=== PATIENT | female | born 1975 | race Caucasian/White ===

== ENCOUNTER 2017-03-12 17:54 | Emergency (ER) | payer BC ==
[~2017-03-12] VITALS: Ht 175.3 cm; Wt 71.5 kg
[2017-03-12 17:59] VITALS: Ht 175.3 cm; Wt 71.5 kg
--- NOTE | 2017-03-12 20:07 | RADRPT ---
PROCEDURE: CT Brain without. CLINICAL INDICATION: Head injury TECHNIQUE: A CT of the brain was performed utilizing axial sections from the skull base through th e vertex without contrast. The scan was reviewed in soft tissue brain and high frequency resolution bone algorithm windows. Images were reviewed on a high-resolution PACS workstation. images. The c alculated radiation dose measures 720.23 mGy centimeters. The CTDI measures 45.0 mGy. One or more of the following dose reduction techniques were used: - Automated exposure control. - Adjustment of the mA and/or kV according to patient size . - Use of iterative reconstruction technique. Images were reviewed on a high-resolution PACS workstation COMPARISON: None available FINDINGS: The ventricles and sulci are symmetric and normal in size and morphology. There is no evidence of i ntracranial hemorrhage, mass effect, edema or midline shift. No abnormal intra-axial or extra-axial fluid collections are seen. The density of the brain is normal and the yee/white matter different iation is well preserved. Brainstem and posterior fossa structures are equally unremarkable. The o sseous structures and visualized paranasal sinuses are unremarkable. The surrounding soft tissue sc alp and bony calvarium are intact and normal. IMPRESSION: 1. No acute intracranial findings. RPTAT: UU .Royal Suarez MD, Date Time Electronically viewed and signed by .Royal Suarez MD, MD on 03/12/2017 20:06 .d/
[2017-03-12] MEDS ORDERED: ACET500C5 PO (20:33)
[2017-03-12 20:43] VITALS: BP 126/82; PULSE 81; RESP 20; TEMP 98.1
--- NOTE | 2017-03-12 20:44 | ERD ---
ER Documentation Chief Complaint Date/Time DATE: 03/12/17 TIME: 20:41 Chief Complaint Complains of cofrontal headache after bumping heads with HPI 41-year-old female patient with no significant past medical history presents to the ED complaining of a headache that started 3 days ago. Reports that she sustained a head injury as her hit her face with his posterior head. Describes the pain as achy and rates it a 5 out of 10. States that she followed up with her primary care physician, Dr. Brandon Ragland sent here for a CT of the brain without contrast due to having a more dilated left pupil. Denies any nausea, vomiting, neck stiffness, fever, chills, blurred vision, vision loss, eye pain, weakness, dizziness. ROS All systems reviewed and are negative except as per history of present illness. Medications Home Meds Active Scripts Acetaminophen* (Tylophen*) 500 Mg Capsule, 1 CAP PO Q6H Y for PAIN AND OR ELEVATED TEMP, #20 CAP Prov:JONATHON MALIN PA-C 03/12/17 Allergies Allergies: Coded Allergies: minocycline (Verified Allergy, Unknown, 03/12/17) PMhx/Soc History of Surgery: Yes (Cardiac Ablation,L Knee Surg,IUD) Anesthesia Reaction: No Hx Neurological Disorder: No Hx Respiratory Disorders: No Hx Cardiac Disorders: No Hx Psychiatric Problems: No Hx Miscellaneous Medical Probl: No Hx Alcohol Use: Yes (Social) Hx Substance Use: No Hx Tobacco Use: No Physical Exam Vitals Vital Signs Date Time Temp Pulse Resp B/P Pulse Ox O2 Delivery O2 Flow Rate FiO2 03/12/17 17:59 98.4 116 20 146/91 95 Physical Exam Const: [id number], well-nourished. In no acute distress. Head: Atraumatic, normocephalic Eyes: Normal Conjunctiva without injection. No purulent discharge. PERRLA. EOMI ENT: Normal external ear. Ear canal without erythema. Tympanic membrane pearly yee without effusion or bulging. Nasal canal clear with normal turbinates. Moist oropharynx without tonsillar exudates. Non-erythematous pharynx. Uvula midline. No drooling. No trismus. Neck: No cervical midline tenderness. Full range of motion. No meningismus. No cervical lymphadenopathy. No JVD. Resp: Clear to auscultation bilaterally. No wheezing, rhonchi, rales, or crackles. No accessory muscle use. No retractions. Cardio: Regular rate and rhythm. No murmurs, rubs or gallops. Abd: Soft, non tender, non distended. Normal bowel sounds. No palpable masses. No rebound tenderness. No guarding. Negative McBurney's Point. Negative Delgado's Sign. Skin: Normal skin turgor. No petechiae or rashes Back: No midline tenderness. No CVA tenderness. Ext: No cyanosis, or edema. Distal pulses intact bilaterally. Neur: Awake and alert. Normal gait. Normal coordination. Cranial Nerves II- VII intact. Normal finger to nose. Muscle strength 5/5. Sensation intact. Psych: Normal Mood and Affect Procedures/MDM 41-year-old female patient with no significant past medical history presents to the ED complaining of a headache that started 3 days ago after a head injury. Patient is afebrile and nontoxic-appearing. Patient has normal vital signs. PERRLA. EOMI. No conjunctival injection. PROCEDURE: CT Brain without. CLINICAL INDICATION: Head injury TECHNIQUE: A CT of the brain was performed utilizing axial sections from the skull base through the vertex without contrast. The scan was reviewed in soft tissue brain and high frequency resolution bone algorithm windows. Images were reviewed on a high-resolution PACS workstation. images. The calculated radiation dose measures 720.23 mGy centimeters. The CTDI measures 45.0 mGy. One or more of the following dose reduction techniques were used: - Automated exposure control. - Adjustment of the mA and/or kV according to patient size . - Use of iterative reconstruction technique. Images were reviewed on a high-resolution PACS workstation COMPARISON: None available FINDINGS: The ventricles and sulci are symmetric and normal in size and morphology. There is no evidence of intracranial hemorrhage, mass effect, edema or midline shift. No abnormal intra-axial or extra-axial fluid collections are seen. The density of the brain is normal and the yee/white matter differentiation is well preserved. Brainstem and posterior fossa structures are equally unremarkable. The osseous structures and visualized paranasal sinuses are unremarkable. The surrounding soft tissue scalp and bony calvarium are intact and normal. IMPRESSION: 1. No acute intracranial findings. Low suspicion for intracranial bleed, subarachnoid hemorrhage, meningitis, TIA, stroke, glaucoma, subdural hematoma, epidural hematoma, malignancy, cavernous sinus thrombosis or other emergent conditions. Discharge medications: Tylenol Follow up with primary care physician in 1-2 days. Instructed patient to return to the ED sooner for any worsening symptoms. Patient's questions were answered. Patient understood and agreed with discharge plan. Patient discharged stable. Departure Diagnosis: Primary Impression: Head injury Encounter type: initial encounter Qualified Code: S09.90XA - Injury of head , initial encounter Condition: Stable Patient Instructions: HEAD INJURY, No Wake-Up (Adult) Referrals: [facility] YOU HAVE RECEIVED A MEDICAL SCREENING EXAM AND THE RESULTS INDICATE THAT YOU DO NOT HAVE A CONDITION THAT REQUIRES URGENT TREATMENT IN THE EMERGENCY DEPARTMENT. FURTHER EVALUATION AND TREATMENT OF YOUR CONDITION CAN WAIT UNTIL YOU ARE SEEN IN YOUR DOCTORS OFFICE WITHIN THE NEXT 1-2 DAYS. IT IS YOUR RESPONSIBILITY TO MAKE AN APPOINTMENT FOR FOLOW-UP CARE. IF YOU HAVE A PRIMARY DOCTOR --you should call your primary doctor and schedule an appointment IF YOU DO NOT HAVE A PRIMARY DOCTOR YOU CAN CALL OUR PHYSICIAN REFERRAL HOTLINE AT IF YOU CAN NOT AFFORD TO SEE A PHYSICIAN YOU CAN CHOSE FROM THE FOLLOWING [facility] [address] [facility]. [facility] [address] [facility]. [facility] [address] [facility] [facility] [address] [facility] [facility] [address] [facility]. [facility]. [address] [facility]. [facility] YOU HAVE RECEIVED A MEDICAL SCREENING EXAM AND THE RESULTS INDICATE THAT YOU DO NOT HAVE A CONDITION THAT REQUIRES URGENT TREATMENT IN THE EMERGENCY DEPARTMENT. FURTHER EVALUATION AND TREATMENT OF YOUR CONDITION CAN WAIT UNTIL YOU ARE SEEN IN YOUR DOCTORS OFFICE WITHIN THE NEXT 1-2 DAYS. IT IS YOUR RESPONSIBILITY TO MAKE AN APPOINTMENT FOR FOLOW-UP CARE. IF YOU HAVE A PRIMARY DOCTOR --you should call your primary doctor and schedule and appointment IF YOU DO NOT HAVE A PRIMARY DOCTOR YOU CAN CALL OUR PHYSICIAN REFERRAL HOTLINE AT . IF YOU CAN NOT AFFORD TO SEE A PHYSICIAN YOU CAN CHOSE FROM THE FOLLOWING [facility] INSTITUTIONS: [facility] [address] [place] [address] [facility] [address] [place] [address] [facility] [address] [place] [address] [facility] Additional Instructions: Call your primary care doctor TOMORROW for an appointment during the next 2-3 days.See the doctor sooner or return here if your condition worsens before your appointment time. JONATHON MALIN PA-C Mar 12, 2017 20:44
== END 2017-03-12 20:43 | disposition home or self-care (01) ==
LOC: FTE 17:54
DX: S09.90XA Unspecified injury of head, initial encounter (principal); W50.0XXA Accidental hit or strike by another person, initial encounter; Y92.9 Unspecified place or not applicable
CPT/HCPCS: 70450